=== PATIENT | male | born 1985 | race Caucasian/White ===

== ENCOUNTER 2016-07-23 08:53 | Emergency (ER) | payer OTHER ==
[~2016-07-23 08:53] MED LIST: AMOXICILLIN500 MG PO; BIAXIN XL500 MG PO; COMPAZINE10 M PO; FLEXERIL10 MG PO; MOTRIN600 MG PO; MOTRIN800 MG PO; NEOMYCIN-POLYMY10 M5 OT; PEPTO-BISM262 MG/15
[2016-07-23] MEDS ORDERED: NO HOME MEDICATION XX (09:05)
[2016-07-23] MEDS ORDERED: GENTAK5 M1 OP (09:13)
[2016-11-09] MEDS ORDERED: PRINIVIL5 M1 PO (06:38)
[2016-11-09] MEDS ORDERED: JANUVIA100 M1 PO (06:39)
[2016-11-09] MEDS ORDERED: AMARYL4 M1 PO (06:40)
[2016-11-09] MEDS ORDERED: ZOCOR20 M1 PO (06:40)
== END 2016-07-23 09:44 ==
LOC: EDMED 08:53
DX: H10.89 Other conjunctivitis (principal)